=== PATIENT | male | born 1990 | race Caucasian/White ===

== ENCOUNTER 2019-09-22 18:04 | Emergency (ER) | payer SELFPAY ==
[~2019-09-22] VITALS: Ht 170.1 cm; Wt 86.2 kg
[2019-09-22 18:41] LABS: BASO % 0.4 % (0.0-1.0); EOS % 0.1 % (1.0-4.0); HEMATOCRIT 46.3 % (42.0-52.0); HEMOGLOBIN 15.1 g/dl (14.0-18.0); LYMPH # 1.5 10*3/uL (1.3-4.4); MEAN CELL VOLUME 92.2 fl (80.0-94.0); MEAN CORPUSCULAR HGB 30.1 pg (27.0-31.0); MEAN CORPUSCULAR HGB CONC 32.6 g/dl (33.0-37.0); MEAN PLATELET VOLUME 9.3 fl (9.6-12.3); MONO # 0.9 10*3/uL (0.1-1.0); MONO % 10.9 % (3.0-9.0); NEUT # 5.4 10*3/uL (2.3-7.9); NEUT % 69.2 % (47.0-73.0); PLATELET COUNT AUTOMATED 213 10*3/uL (130-400); RED BLOOD COUNT 5.02 10*6/uL (4.50-5.90); RED CELL DISTRI WIDTH 14.4 % (0-14.5); WHITE BLOOD COUNT 7.8 10*3/uL (4.8-10.8)
[2019-09-22 18:51] LABS: INTERNATIONAL NORM RATIO 0.9 (2.0-3.5)
[2019-09-22 18:59] LABS: BILIRUBIN 1+ (NEGATIVE); BLOOD 3+ (NEGATIVE); CLARITY CLOUDY (CLEAR); COLOR YELLOW (YELLOW); GLUCOSE NEGATIVE (NEGATIVE); KETONE 2+ (NEGATIVE); LEUKO ESTERASE NEGATIVE (NEGATIVE); NITRITE NEGATIVE (NEGATIVE); PH 6.5 (5.0-9.0); SPECIFIC GRAVITY 1.025 (1.005-1.030); UROBILINOGEN 0.2 E.U./dl (0.2-1.0)
[2019-09-22 19:08] LABS: URINE AMPHETAMINES < 1000 (1000ng/ml); URINE BARBITURATES < 200 (200ng/ml); URINE BENZODIAZEPINES < 200 (200ng/ml); URINE CANNABINOIDS (THC) > 50 (50ng/ml); URINE COCAINE > 300 (300ng/ml); URINE METHADONE < 300 (300ng/ml); URINE OPIATES < 300 (300ng/ml)
[2019-09-22 19:09] LABS: ALBUMIN 3.9 gm/dl (3.1-4.5); ALKALINE PHOSPHATASE 59 U/L (45-117); BUN 12 mg/dl (7-24); CHLORIDE 103 mmol/L (98-107); CREATININE 1.02 mg/dL (0.70-1.30); LIPASE 44 U/L (73-393); POTASSIUM 4.1 mmol/L (3.5-5.1); SGOT/AST 184 IU/L (3-35); SGPT/ALT 100 U/L (12-78); SODIUM 139 mmol/L (136-145); TOTAL PROTEIN 7.9 gm/dL (6.4-8.2)
[2019-09-22 19:10] LABS: URINE PHENCYCLIDINE < 25 (25ng/ml)
[2019-09-22 19:22] LABS: RBC TNTC rbc/hpf (0-2)
== END 2019-09-22 20:43 | disposition left against medical advice (07) ==
LOC: ED 18:04
PROVIDERS: Nurse Practitioner Family
DX: R10.9 Unspecified abdominal pain (principal); R31.9 Hematuria, unspecified; F12.90 Cannabis use, unspecified, uncomplicated; Z88.5 Allergy status to narcotic agent; Z87.442 Personal history of urinary calculi

== ENCOUNTER 2019-10-15 23:36 | Inpatient (IN) | payer SELFPAY ==
[~2019-10-15] VITALS: Ht 170.1 cm; Wt 84.8 kg
[2019-10-15 23:41] VITALS: BP 123/78
[2019-10-16 00:16] LABS: BASO # 0.1 10*3/uL (0.0-0.1); BASO % 0.3 % (0.0-1.0); HEMATOCRIT 47.8 % (42.0-52.0); HEMOGLOBIN 15.8 g/dl (14.0-18.0); LYMPH % 9.9 % (27.0-41.0); MEAN CELL VOLUME 91.6 fl (80.0-94.0); MEAN CORPUSCULAR HGB 30.3 pg (27.0-31.0); MEAN CORPUSCULAR HGB CONC 33.1 g/dl (33.0-37.0); MONO % 4.8 % (3.0-9.0); NEUT # 16.9 10*3/uL (2.3-7.9); NEUT % 83.7 % (47.0-73.0); PLATELET COUNT AUTOMATED 247 10*3/uL (130-400); RED BLOOD COUNT 5.22 10*6/uL (4.50-5.90); RED CELL DISTRI WIDTH 14.6 % (0-14.5); WHITE BLOOD COUNT 20.3 10*3/uL (4.8-10.8)
[2019-10-16 00:30] LABS: ALBUMIN 4.4 gm/dl (3.1-4.5); ALKALINE PHOSPHATASE 57 U/L (45-117); BUN 17 mg/dl (7-24); CHLORIDE 107 mmol/L (98-107); CREATININE 1.25 mg/dL (0.70-1.30); LIPASE 66 U/L (73-393); POTASSIUM 3.9 mmol/L (3.5-5.1); SGOT/AST 47 IU/L (3-35); SGPT/ALT 94 U/L (12-78); SODIUM 140 mmol/L (136-145); TOTAL PROTEIN 8.2 gm/dL (6.4-8.2)
[2019-10-16 00:36] LABS: ACETAMINOPHEN (TYLENOL) < 3.0 ug/ml (10-30); ETHYL ALCOHOL < 3.0 mg/dl (<3)
--- NOTE | 2019-10-16 02:02 | NUR ---
OFFICER SERGIO REQUEST NOTIFICATION IF PATIENT IS DISCHARGED.PROVIDED FORM FOR REQUEST.FORM PLACED IN PT CHART.
--- NOTE | 2019-10-16 02:34 | NUR ---
PT MEDICATED WITH VISTARIL FOR ANXIETY, WILL REASSESS FOR EFFECTIVENESS
[2019-10-16 03:11] LABS: CLARITY CLEAR (CLEAR); COLOR YELLOW (YELLOW)
[2019-10-16 03:12] LABS: BILIRUBIN NEGATIVE (NEGATIVE); BLOOD NEGATIVE (NEGATIVE); GLUCOSE NEGATIVE (NEGATIVE); KETONE NEGATIVE (NEGATIVE); LEUKO ESTERASE NEGATIVE (NEGATIVE); NITRITE NEGATIVE (NEGATIVE); UROBILINOGEN 0.2 E.U./dl (0.2-1.0)
[2019-10-16 03:20] LABS: URINE AMPHETAMINES < 1000 (1000ng/ml); URINE BARBITURATES < 200 (200ng/ml); URINE BENZODIAZEPINES < 200 (200ng/ml); URINE CANNABINOIDS (THC) > 50 (50ng/ml); URINE COCAINE < 300 (300ng/ml); URINE METHADONE < 300 (300ng/ml); URINE OPIATES < 300 (300ng/ml)
[2019-10-16 03:21] LABS: BACTERIA 1+; MUCOUS 1+
[2019-10-16 03:26] LABS: URINE PHENCYCLIDINE < 25 (25ng/ml)
[2019-10-16 04:00] VITALS: BP 123/71
--- NOTE | 2019-10-16 04:00 | NUR ---
A 28, admitted to 5E, under the services of CHELSEA Pratt DO with a diagnosis of GASTROENTERITIS, LEUKOCYTOSIS. Chief complaint is NAUSEA, VOMITING, DIARRHEA. Patient arrived via ambulatory from ER. Monitor applied. Initial assessment completed. Vital signs taken and recorded. CHELSEA PRATT DO notified of admission to the unit. Orders received. See assessment for past medical history, medications and allergies. Patient and/or family oriented to unit. visitation policy reviewed. Clothing/patient valuable form completed. DAYNA BARROS
[2019-10-16] MEDS ORDERED: ADVIL200 MG PO (04:19)
--- NOTE | 2019-10-16 04:39 | NUR ---
PATIENT REPEATEDLY COMING OUT TO NURSE'S STATION WITH DIFFERENT CONCERNS WITH HIS IV DISCONNECTED. ASKED PATIENT TO LEAVE IT ALONE AND NOT TO UNHOOK IT AND PATIENT SAID I WAS BEING DISRESPECTFUL TO HIM. NOTIFIED DR. NEWTON THAT PATIENT CONTINUES TO UNHOOK HIS IV. HE SAID OK.
[2019-10-16 04:55] LABS: BASO % 0.2 % (0.0-1.0); EOS % 0.1 % (1.0-4.0); HEMATOCRIT 46.9 % (42.0-52.0); HEMOGLOBIN 15.5 g/dl (14.0-18.0); LYMPH # 2.1 10*3/uL (1.3-4.4); MEAN CELL VOLUME 91.8 fl (80.0-94.0); MEAN CORPUSCULAR HGB 30.3 pg (27.0-31.0); MEAN PLATELET VOLUME 10.1 fl (9.6-12.3); MONO % 5.9 % (3.0-9.0); NEUT # 14.3 10*3/uL (2.3-7.9); NEUT % 80.8 % (47.0-73.0); PLATELET COUNT AUTOMATED 251 10*3/uL (130-400); RED BLOOD COUNT 5.11 10*6/uL (4.50-5.90); RED CELL DISTRI WIDTH 14.6 % (0-14.5); WHITE BLOOD COUNT 17.7 10*3/uL (4.8-10.8)
--- NOTE | 2019-10-16 05:30 | NUR ---
PATIENT PUT CALL LIGHT ON, WENT INTO ROOM, PATIENT STARLTED STANDING ON OTHER SIDE OF ROOM. I ASKED WHAT HE NEEDED AND HE SAID NOTHING. I WALKED OVER TO TURN OFF LIGHT, PATIENT PROCEDED TO LOOK THROUGH HIS ITEMS AND I NOTICED A SPOON, TORNIQUETE, AND PLASTIC TUBE WITH CELL PHONE CASE TAKEN OFF PHONE. PATIENT KEPT FUMBLING THROUGH PERSONAL BELONGINGS AND I REMOVED THE ITEMS FROM THE ROOM AND PLACED IN BAG.
[2019-10-16 05:33] LABS: ALBUMIN 4.4 gm/dl (3.1-4.5); ALKALINE PHOSPHATASE 58 U/L (45-117); BUN 16 mg/dl (7-24); CHLORIDE 101 mmol/L (98-107); CHOLESTEROL 127 mg/dL (<200); HDL CHOLESTEROL 51 mg/dl (40-60); LDL CHOLESTEROL 64 mg/dL (9-159); PHOSPHOROUS 5.2 mg/dL (2.5-4.9); POTASSIUM 4.3 mmol/L (3.5-5.1); SGOT/AST 43 IU/L (3-35); SGPT/ALT 90 U/L (12-78); SODIUM 135 mmol/L (136-145); TOTAL PROTEIN 8.4 gm/dL (6.4-8.2); TRIGLYCERIDES 58 mg/dl (<150); VLDL CHOLESTEROL 12 mg/dL (6-40)
--- NOTE | 2019-10-16 05:40 | NUR ---
DORMITORY MAID NOTIFED OF FINDING FROM PATIENTS ROOM. SHE WOULD LIKE SECURITY OUTSIDE THE ROOM IF NURSE NEEDS TO ENTER.
--- NOTE | 2019-10-16 05:44 | NUR ---
MADE SECURITY AWARE OF ISSUE IN PATIENTS ROOM. THEY WILL BE UP IF NEEDED.
--- NOTE | 2019-10-16 05:47 | NUR ---
NOTIFIED DR. NEWTON OF FINDING SUSPICIOUS ITEMS IN PATIENTS ROOM.
--- NOTE | 2019-10-16 06:07 | NUR ---
[facility] incident report filed.
--- NOTE | 2019-10-16 07:54 | NUR ---
PATIENT IS VERY RUDE TO THE STAFF. HE YELLED AT OFF COMING NURSE AND ONCOMING NURSE. HE YELLED AT THE AID. HE CAME OUT INTO THE HALLWAY AND ASKED FOR THE BUSINESS PROPOSAL REP. BUSINESS PROPOSAL REP JOCELYN WAS CALLED.
[2019-10-16] MEDS ORDERED: ZOFRAN4 MG PO (10:41)
--- NOTE | 2019-10-16 11:22 | NUR ---
Discharge instructions reviewed with patient/family. Patient receptive and verbalizes understanding. Follow-up care arranged. Written instructions given to patient/family. PATIENT WAS RELEASED INTO POLICE CUSTODY WITHOUT INCIDENT. VENITA YANEZ
[2019-10-17 15:29] LABS: VITAMIN D, 25-HYDROXY 22.3 ng/mL (30-100)
== END 2019-10-16 11:22 | disposition home or self-care (01) | DRG 392 ==
LOC: ED 23:36 → EDHOLD 10-16 03:30 → 5E 10-16 03:40
PROVIDERS: Emergency Medicine Emergency Medical Services; Internal Medicine; Physician Assistant; ADMIT Internal Medicine
DX: K52.9 Noninfective gastroenteritis and colitis, unspecified (principal); E87.2 Acidosis; F17.210 Nicotine dependence, cigarettes, uncomplicated; R73.9 Hyperglycemia, unspecified; R82.71 Bacteriuria; R74.0 Nonspecific elevation of levels of transaminase and lactic acid dehydrogenase [LDH]; Z71.6 Tobacco abuse counseling; Z82.49 Family history of ischemic heart disease and other diseases of the circulatory system; Z88.5 Allergy status to narcotic agent